=== PATIENT | male | born 1960 | race Caucasian/White ===

== ENCOUNTER 2016-12-12 23:43 | Observation (INO) | payer BC, OTHER ==
[~2016-12-12] VITALS: Ht 182.9 cm; Wt 86.9 kg
[2016-12-13] MEDS ORDERED: ASPIRIN 81 MG CHEW TAB ONE (00:07)
[2016-12-13] MEDS ORDERED: DOCUSATE SOD 100 MG CAP PO PRN (02:45)
[2016-12-13] MEDS ORDERED: SODIUM CHLORIDE 0.9% FLUSH BAG 500 ML IV PRN (02:45)
[2016-12-13] MEDS ORDERED: SALINE FLUSH 10 ML FLUSH PRN (02:45)
[2016-12-13] MEDS ORDERED: NITROGLYCERIN 50 MG/250 ML IV PRN (02:45)
[2016-12-13] MEDS ORDERED: ONDANSETRON 4 MG VIAL IV PRN (02:45)
[2016-12-13] MEDS ORDERED: MORPHINE 2 MG/ML SYR IV PRN (02:45)
[2016-12-13] MEDS ORDERED: NITROGLYCERIN SL 0.4 MG TAB SL PRN (02:45)
[2016-12-13] MEDS ORDERED: TEMAZEPAM 15 MG CAP PO PRN (02:45)
[2016-12-13] MEDS ORDERED: TRAMADOL 50 MG TAB PO PRN (02:45)
[2016-12-13] MEDS ORDERED: SODIUM CHLORIDE 0.9% 1,000 ML IV SCH (02:45)
[2016-12-13] MEDS ORDERED: LORAZEPAM 0.5 MG TAB PO PRN (02:45)
[2016-12-13] MEDS ORDERED: ACETAMINOPHEN 325 MG TAB PO PRN (02:50)
[2016-12-13] MEDS ORDERED: NITROGLYCERIN 2% OINT 1 INCH PKT TOPICAL ONE (03:35)
[2016-12-13 04:52] VITALS: BP_SYST 142; BP_SYST 160; RESP 18; TEMP 97.4; Ht 182.9 cm; Wt 86.9 kg
[2016-12-13 05:10] VITALS: RESP 18
[2016-12-13] MEDS: NITROGLYCERIN 2% OINT 1 INCH PKT TOPICAL SCH ×2 (06:23→12:00)
[2016-12-13 07:30] VITALS: BP_SYST 110; RESP 18; TEMP 97.8
[2016-12-13] MEDS ORDERED: SALINE FLUSH 10 ML FLUSH SCH (08:00)
[2016-12-13] MEDS ORDERED: ASPIRIN EC 81 MG TAB PO SCH (08:00)
[2016-12-13 12:01] VITALS: BP_SYST 139; TEMP 98.2
[2016-12-13 12:04] VITALS: BP_SYST 139; RESP 18; TEMP 98.2
== END 2016-12-13 09:49 | disposition home or self-care (01) ==
LOC: ENRESERVDT → ENRESERVTM → ER 23:43 → EMR 23:44 → ENPENDDIS 23:44 → EEVIPCON 23:44 → 4THE 12-13 04:05
PROVIDERS: ADMIT Internal Medicine Cardiovascular Disease; ATTEND Internal Medicine Cardiovascular Disease
DX: R07.2 Precordial pain (principal); I25.10 Atherosclerotic heart disease of native coronary artery without angina pectoris; Z95.5 Presence of coronary angioplasty implant and graft; Z79.82 Long term (current) use of aspirin; I10 Essential (primary) hypertension
CPT/HCPCS: 36415; 71010; 80053; 82550; 82553; 83735; 84484; 85025; 85610; 85730; 93005; 94799